=== PATIENT | male | born 1970 | race Caucasian/White ===

== ENCOUNTER 2019-09-09 13:17 | Emergency (ER) | payer BC, SELFPAY ==
[2019-09-09 13:52] VITALS: BP 179/93; PULSE 102; RESP 18; TEMP 37.3; O2SAT 100
--- NOTE | 2019-09-09 15:34 | ED.SKABFB ---
HPI - Skin/Abscess/Foreign Bdy General Chief complaint: Skin/Abscess/Foreign Body <Scott Berry PA-C - Last Filed: 09/09/19 16:35> Stated complaint: wound groin <DANA Salas Last Filed: 09/09/19 16:35> Time Seen by Provider: 09/09/19 14:10 <Scott Berry PA-C - Last Filed: 09/09/19 16:35> Source: patient <Scott Berry PA-C - Last Filed: 09/09/19 16:35> Mode of arrival: ambulatory <DANA Salas Last Filed: 09/09/19 16:35> Limitations: no limitations <Scott Berry PA-C - Last Filed: 09/09/19 16:35> History of Present Illness HPI narrative: Patient is a 49-year-old male who presents with red tender area to the suprapubic region noting history of cellulitis in the past patient notes aching pain worse with touch and activity denies any fever chills nausea vomiting patient notes he has not taken his diabetes mellitus medicines in the last 2 days and is a type II diabetic but has plenty of medication. 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 staying in a hotel while his truck is being repaired <Scott Berry PA-C - Last Filed: 09/09/19 16:35> Related Data Allergies/Adverse reactions: Allergies Allergy/AdvReac Type Severity Reaction Status Date / Time cephalexin [From Keflex] Allergy Hives Verified 09/09/19 14:51 Penicillins Allergy Hives Verified 09/09/19 14:50 <Scott Berry PA-C - Last Filed: 09/09/19 16:35> Review of Systems Review of Systems: All systems reviewed & are unremarkable except as noted in HPI and below <Scott Berry PA-C - Last Filed: 09/09/19 16:35> PMFSH Past Medical History Medical History: Medical History (Updated 09/09/19 @ 16:34 by Scott Berry PA-C) Diabetes mellitus <DANA Salas Last Filed: 09/09/19 16:35> Social History Social History: Social History (Updated 09/09/19 @ 15:35 by Scott Berry PA-C) Smoking status: Never smoker <Scott Berry PA-C - Last Filed: 09/09/19 16:35> Exam Narrative: Exam Narrative: GENERAL: Well-appearing, well-nourished, and in no acute distress. HEAD: Normocephalic, atraumatic. EYES: PERRLA and EOMI. ENT: Nares clear, no rhinorrhea or epistaxis. Mucous membranes moist. CHEST: Clear to auscultation. No respiratory distress. No wheezes rales or rhonchi HEART: Regular rate and rhythm. No murmur heard. EXTREMITIES: Normal range of motion. No edema. SKIN: Warm, dry, no rash. 2 cm in diameter red tender swollen area to the left pubic region with drainage NEURO: No focal deficits. Alert and oriented x3. PSYCH: Normal mood and affect. <Scott Berry PA-C - Last Filed: 09/09/19 16:35> Course Course Emergency Course: Patient aware of case findings treatment plan and diagnosis agreeing to follow-up as instructed provided with reasons to return had culture taken with I&D with dose of clindamycin given prior to discharge <Scott Berry PA-C - Last Filed: 09/09/19 16:35> Vital Signs Vital signs: Vital Signs Temperature 99.1 F 09/09/19 13:52 Pulse Rate 102 H 09/09/19 13:52 Respiratory Rate 18 09/09/19 13:52 Blood Pressure 179/93 H 09/09/19 13:52 Pulse Oximetry 100 09/09/19 13:52 Temperature 98.0 F 09/09/19 17:17 Pulse Rate 74 09/09/19 17:17 Respiratory Rate 20 09/09/19 17:17 Blood Pressure 127/88 09/09/19 17:17 Pulse Oximetry 99 09/09/19 17:17 <Scott Berry PA-C - Last Filed: 09/09/19 16:35> Vital Signs Temperature 99.1 F 09/09/19 13:52 Pulse Rate 102 H 09/09/19 13:52 Respiratory Rate 18 09/09/19 13:52 Blood Pressure 179/93 H 09/09/19 13:52 Pulse Oximetry 100 09/09/19 13:52 Temperature 98.0 F 09/09/19 17:17 Pulse Rate 74 07/20/20 17:17 Respiratory Rate 20 09/09/19 17:17 Blood Pressure 127/88 09/09/19 17:17 Pulse Oximetry 99 09/09/19 17:17 <Shania Lester MD - Last Filed: 09/09/19 18:23> Pro
[2019-09-09] MEDS: LIDOCAINE HCL 1% LOCAL INJ 20 ML VIAL (16:17)
[2019-09-09 17:17] VITALS: BP 127/88; PULSE 74; RESP 20; TEMP 36.7; O2SAT 99
== END 2019-09-09 17:18 | disposition home or self-care (01) ==
PROVIDERS: Emergency Provider General Practice
DX: L02.211 Cutaneous abscess of abdominal wall (principal); E11.9 Type 2 diabetes mellitus without complications
CPT/HCPCS: 10061; 87070; 87075; 87077; 87186; 87205; 96372; 99283